=== PATIENT | female | born 1955 | race Caucasian/White ===

== ENCOUNTER 2016-09-06 06:28 | Day surgery (SDC) | payer OTHER ==
[~2016-09-06] VITALS: Ht 124.5 cm; Wt 81.9 kg
[2016-09-06 07:40] VITALS: Ht 124.5 cm; Wt 81.9 kg
[2016-09-06] MEDS ORDERED: MTF1000T PO (07:50)
[2016-09-06] MEDS ORDERED: EXEN2VIA SQ (07:50)
[2016-09-06] MEDS ORDERED: EMPA25TA PO (07:50)
[2016-09-06] MEDS ORDERED: AMLO-145 PO (07:50)
[2016-09-06] MEDS ORDERED: BENA40TA41 PO (07:50)
[2016-09-06] MEDS ORDERED: LORA10TA3 PO (07:50)
[2016-09-06 07:58] VITALS: BP 135/59; PULSE 87; RESP 12
[2016-09-06] MEDS ORDERED: FENTAnyl 50 MCG/ML VIAL ONE (08:29)
[2016-09-06] MEDS ORDERED: MIDAZOLAM 1 MG/ML 2 ML INJ ONE ×2 (08:29)
[2016-09-06 09:01] VITALS: BP 90/55; PULSE 70; RESP 17
--- NOTE | 2016-09-06 14:56 | GILP ---
DATE OF PROCEDURE: NAME OF PROCEDURE: Colonoscopy. SURGEON: Tiffanie Mcdaniel MD PREOPERATIVE DIAGNOSIS: Screening colonoscopy. POSTOPERATIVE DIAGNOSES: 1. Colonoscopy all the way to the cecum. 2. Melanosis coli. 3. Internal hemorrhoids. 4. No colon neoplasm was identified. INDICATION FOR THE PROCEDURE: Ms. Xin Hernandez is a 61-year-old female patient who was scheduled for screening colonoscopy. The procedure and possible complications are well explained to the patient, she understood and conse nted to the procedure. DESCRIPTION OF PROCEDURE: Under the influence of fentanyl and Versed, the colonoscope was carefully introduced in the rectum and under direct vision, it was advanced all the way to the cecum. FINDINGS: The patient had melanosis coli. She also had internal hemorrhoids. No colon neoplasm wa s identified. She tolerated the procedure very well, and there was no complication from the procedure. At the end of the procedure, she was awake with stable vital signs, and she was discharged home to the care of her family. IMPRESSION: 1. Colonoscopy all the way to the cecum. 2. Melanosis coli. 3. Internal hemorrhoids. 4. No colon neoplasm was identified. PLAN: Next screening colonoscopy in 10 years. Dictated By: TIFFNAIE HOUSTON/DE Conf#: [id number] DID#: [id number]
== END 2016-09-06 10:48 | disposition home or self-care (01) ==
LOC: GIL 06:28
PROVIDERS: ATTEND Internal Medicine Gastroenterology
DX: Z12.11 Encounter for screening for malignant neoplasm of colon (principal); K63.89 Other specified diseases of intestine; K64.8 Other hemorrhoids; I10 Essential (primary) hypertension; E11.9 Type 2 diabetes mellitus without complications
CPT/HCPCS: 45378; 82962; J2250; J3010; Z7610